=== PATIENT | female | born 1955 | race Caucasian/White ===

== ENCOUNTER → 2016-07-10 | Day surgery (SDC) | payer MEDICARE, BC ==
--- NOTE | 2016-06-29 11:29 | MH ---
cc: TAHIR THOMAS DATE OF ADMISSION: 07/10/2016 ADMITTING DIAGNOSIS: Cataract, right eye. HISTORY OF PRESENT ILLNESS This 60-year-old white female is coming through [facility] for the purpose of a lens extraction of the right eye with intraocular lens implant under local anesthesia. She had a similar procedure on the left eye and has done well postoperatively and now the patient has requesting cataract surgery for her right eye. Her best corrected visual acuity in room light is 20/30 -2 in the right eye and 20/20 -1 in the left. PAST MEDICAL HISTORY The patient has a history of: 1. Hypertension. 2. Asthma. 3. Diabetes type 2. 4. Von Willebrand's disease. 5. Hypothyroidism. PAST SURGICAL HISTORY 1. Includes the above-mentioned cataract surgery on her left eye recently. 2. Back surgery. 3. Hysterectomy. 4. Gallbladder surgery. 5. Lymph nodes. 6. Spinal stimulator. 7. Thoracic syndrome right shoulder. 8. Left hand surgery, having a bone removed. MEDICATIONS Daily medications include: 1. Levothyroxine. 2. Flexeril. 3. Hydrochlorothiazide. 4. Diltiazem. 5. Gabapentin. 6. Pentoprazole. 7. Metformin. 8. Bethanechol. 9. Estradiol. 10. Celebrex. 11. Singulair. 12. Baby aspirin. 13. Magnesium. 14. Potassium. 15. Hydrocodone p.r.n. 16. Pravastatin. ALLERGIES MORPHINE, PERCOCET, DEMEROL, PENICILLIN. SOCIAL HISTORY She is a one pack per day smoker off and on for 40 years. Drinks alcohol socially. FAMILY HISTORY Family history is positive for mother with cataract and glaucoma. REVIEW OF SYSTEMS HEAD: Patient denies severe headaches, dizziness or recent head injury. EARS: Patient denies hearing loss, ear pain, discharge or ringing in the ears. NOSE: Patient denies nasal discharge, obstruction or frequent colds. MOUTH AND THROAT: Patient denies soreness of the mouth or tongue, bleeding gums, trouble swallowing, changes in voice or sore throat. NECK: Patient denies neck pain or swelling. The patient has some limitation in neck movement, decreased to the left turn due to possible thoracic outlet syndrome. CARDIOPULMONARY SYSTEM: Patient denies shortness of breath, orthopnea, chronic cough, sputum production, hemoptysis, chest pain, wheezing, palpitations or light-headedness. GI SYSTEM: Patient denies poor appetite, nausea, vomiting, abdominal pain, ulcers, or change in bowel habits. She has hemorrhoids. SYSTEM: The patient denies urinary frequency, dysuria, change in urine color. NERVOUS SYSTEM: Patient denies convulsions, vertigo, stroke, numbness or weakness. PHYSICAL EXAMINATION VITAL SIGNS: Blood pressure is 108/72, pulse 76, respirations 16. HEAD: Normocephalic, atraumatic. NOSE: Without rhinorrhea. THROAT: Clear. NECK: Supple. CHEST: Clear. HEART: Regular rhythm. ABDOMEN: Without tenderness. EXTREMITIES: Without edema. NEUROLOGIC: Within normal limits. MENTAL STATUS: Within normal limits. EYE EXAMINATION: The patient's best corrected visual acuity in the right eye in room light is 20/30 -2 and in the left eye is 20/20 -1. Visual young are full to confrontation testing. Extraocular muscle exam reveals full versions with orthophoria at distance and exophoria at near. Pupils 3.5 mm equal, round, reactive to light without afferent defect. Anterior segment examination reveals a nuclear sclerotic cataract in the right eye and a posterior chamber intraocular lens in the left. Intraocular pressure is 14 in the right eye and 19 in the left by applanation tonometry. Dilated fundus exam revealed sharp disk with cup-to-disk ratio 0.3 bilaterally. There is some mild granularity in the macula of each eye and the background is within normal limits. Potential acuity meter on the right eye reveals potential acuity of 20/20 -1. IMPRESSION 1. Cataract, right eye. 2. Pseudophakia, left eye. PLAN Lens extraction of the right eye with intraocular lens implant under local anesthesia through [facility]. The patient has been cleared medically. She has been counseled as to the risks, benefits and alternatives and elected to proceed. I feel that cataract surgery will improve the quality of life and activities of daily living in this patient. The patient will be given IV DDAVP prior to the surgery because of her Von Willebrand's disease. MD FELIPA Sullivan/TAY /10:51 AM /11:03 AM
[~2016-07-10] VITALS: Ht 152.4 cm; Wt 69.5 kg
[~2016-07-10] MED LIST: ACETYLCHOLINE CHL OPHT SOLN 1:100 2 ML VIAL ONE; ASPI1TAB69 PO; CELE100C PO; CHOL4POW3 PO; CRANCAP2 PO; CYCL1TAB29 PO; DESMOPRESSIN INJ 20 MCG in SODIUM CHLORIDE 0.9% INJ 50 ML IV SCH; DILT31TA PO; EPINEPHrine HCL (1:1000) 1 MG/ML VIAL ONE; EPINEPHrine HCL (1:1000) 30 MG/30 ML VIAL ONE; ESTR0.5T PO; GABA300C5 PO; HYALURONIDASE/LIDOCAINE/BUPIVACAINE 4.5 ML SYR RIGHT EYE ONE; HYALURONIDASE/LIDOCAINE/BUPIVACAINE 6 ML SYR RIGHT EYE ONE; HYDR-3580 PO; HYDR25TA5 PO; LEVO200T4 PO; LIDOCAINE HCL 1% 20 ML VIAL ONE; MAGN500T4 PO; METF500 PO; MIDAZOLAM HCL 2 MG/2 ML VIAL ONE; MONT10TA2 PO; PANT20TA2 PO; PILOCARPINE HCL 2% OPHT SOLN 15 ML BTL RIGHT EYE ONE; POTA1TAB; PRAV10TA PO; PROPARACAINE HCL 0.5% OPHT SOLN 15 ML BTL RIGHT EYE ONE; PROPOFOL 200 MG/20 ML AMP ONE; SODIUM CHLORID 0.9% 500 ML INJ 500 ML ONE; VISCOAT OPHT IRRIG SOLN 0.75 ML SYRINGE RIGHT EYE ONE
[2016-07-10 10:15] VITALS: PULSE 79
[2016-07-10] MEDS: CYCLOPENTOLATE HCL 1% OPHT SOLN 2 ML BTL RIGHT EYE SCH ×4 (10:18→10:27)
[2016-07-10] MEDS: TROPICAMIDE 1% OPHT SOLN 15 ML BTL RIGHT EYE SCH ×4 (10:18→10:27)
[2016-07-10] MEDS: DICLOFENAC SOD 0.1% OPHT SOLN 2.5 ML BTL RIGHT EYE SCH ×4 (10:18→10:27)
[2016-07-10] MEDS: PHENYLEPHRINE HCL 2.5% OPTH SOLN 2 ML BTL RIGHT EYE SCH ×4 (10:18→10:27)
[2016-07-10] MEDS: GATIFLOXACIN 0.5% OPHT SOLN 2.5 ML BTL RIGHT EYE SCH ×4 (10:18→10:27)
[2016-07-10 10:23] VITALS: BP 124/75; PULSE 79; RESP 18; TEMP 97.8; O2SAT 99
[2016-07-10 11:50] VITALS: PULSE 75
[2016-07-10] MEDS: TOBRAMYCIN/DEXAMETHASONE OPTH OINT 3.5 GM TUBE ONE ×2 (12:31→12:51)
[2016-07-10 13:00] VITALS: TEMP 97.8
[2016-07-10 13:20] VITALS: BP 132/63; PULSE 100; RESP 14; O2SAT 98
--- NOTE | 2016-07-11 09:07 | MP ---
cc: TAHIR LEIVA DATE OF SURGERY: 07/10/2016 PREOPERATIVE DIAGNOSIS Cataract, right eye. POSTOPERATIVE DIAGNOSIS Cataract right eye. OPERATION Extracapsular cataract extraction with posterior chamber intraocular lens implant by phacoemulsification, right eye. SURGEON Tahir Leiva M.D. ANESTHESIA Local. COMPLICATIONS None. INDICATIONS See history and physical previously dictated. OPERATIVE PROCEDURE The patient had adequate retrobulbar and eyelid blocks administered in the holding area and was brought to the operating room. The right eye was prepped and draped in the usual sterile ophthalmic manner. A lid speculum was inserted in the right eye. A 4-0 silk bridle suture was placed through the conjunctiva near the superior rectus muscle and it was tacked to the drape. A fornix-based conjunctival flap was prepared spanning approximately 5 mm in width. Hemostasis was obtained with wet-field cautery. A 3.5 mm groove was made 1 mm from the limbus and dissected up to the limbus in the form of a scleral pocket incision. A stab incision was then made at the 2 o'clock position. Viscoelastic was injected into the anterior chamber. The anterior chamber was entered with a 2.75 mm keratome through the scleral pocket incision. A 360 degree continuous curvilinear capsulorrhexis was then performed. Hydrodissection was utilized to divide the nucleus into inner and outer components and to separate the cortex from the capsule. Phacoemulsification was then utilized to remove the nucleus. The outer nuclear layer was removed with irrigation and aspiration and short bursts of ultrasound as necessary. The cortex was removed with the irrigation-aspiration handpiece. The posterior capsule was polished with the capsule polisher. Viscoelastic was injected into the capsular bag. The intraocular lens was inspected and found to be in good condition. The lens utilized was an [place], model SA50AT with a power of +19 diopters. The lens was inserted into the capsular bag. The viscoelastic in the anterior chamber was then removed with the irrigation-aspiration handpiece. Viscoelastic was also removed from beneath the intraocular lens. The anterior chamber was filled with Miochol-E through the stab incision and pressurized. The wound was checked for leaks at this pressure and normalized pressure, and there were none. The 4-0 bridle suture was removed. The conjunctival flap was brought down over the wound and secured with cautery. Pilocarpine 2% eye drops were instilled topically. The lid speculum was removed. TobraDex ophthalmic ointment was applied. The eye was double patched and shielded. The patient tolerated the procedure well and left the Operating Room in satisfactory condition. MD FELIPA Sullivan/CARA /12:59 PM /9:05 AM
== END | disposition home or self-care (01) ==
LOC: CSDC 08:37
PROVIDERS: ATTEND Ophthalmology
DX: H25.811 Combined forms of age-related cataract, right eye (principal); I10 Essential (primary) hypertension; J45.909 Unspecified asthma, uncomplicated; E11.9 Type 2 diabetes mellitus without complications; D68.0 Von Willebrand disease; E03.9 Hypothyroidism, unspecified; F17.210 Nicotine dependence, cigarettes, uncomplicated; Z83.518 Family history of other specified eye disorder
CPT/HCPCS: 00142; 66984; J0171; J2250; J2597; J7040; V2632